=== PATIENT | male | born 2000 | race Caucasian/White ===

== ENCOUNTER 2024-01-07 18:53 | Emergency (ER) | payer OTHER ==
[~2024-01-07] VITALS: Ht 195.6 cm; Wt 90.7 kg
[2024-01-07 20:04] VITALS: BP 123/77; PULSE 78; RESP 20; TEMP 99; O2SAT 94
== END 2024-01-07 21:09 | disposition home or self-care (01) ==
LOC: MED 18:53
DX: H53.141 Visual discomfort, right eye (principal); Z79.899 Other long term (current) drug therapy
CPT/HCPCS: 99281